=== PATIENT | female | born 1945 | race Caucasian/White ===

== ENCOUNTER 2017-11-20 08:28 | Emergency (ER) | payer MEDICARE, BC ==
[~2017-11-20] VITALS: Ht 165.1 cm; Wt 74.0 kg
[2017-11-20 08:32] VITALS: BP 138/65; PULSE 67; RESP 16; TEMP 98.2; O2SAT 94
[2017-11-20] MEDS ORDERED: GLUC15009 PO (08:42)
[2017-11-20] MEDS ORDERED: FOLI400T PO (08:42)
[2017-11-20] MEDS ORDERED: FISHCAP4 PO (08:42)
[2017-11-20] MEDS ORDERED: ASPI-516 CHEW (08:42)
[2017-11-20] MEDS ORDERED: ATOR10TA15 PO (08:42)
[2017-11-20] MEDS ORDERED: CELE20TA PO (08:42)
[2017-11-20] MEDS ORDERED: VERA80TA PO (08:42)
[2017-11-20] MEDS ORDERED: VITA250T3 PO (08:42)
[2017-11-20] MEDS ORDERED: METO25TA3 PO (08:42)
[2017-11-20] MEDS ORDERED: VITA200C3 PO (08:42)
[2017-11-20] MEDS ORDERED: CALCTAB19 PO (08:42)
[2017-11-20] MEDS ORDERED: MULTTAB67 PO (08:42)
[2017-11-20] MEDS ORDERED: BENZ100 PO (08:46)
[2017-11-20] MEDS ORDERED: CEPH-460 PO (08:46)
--- NOTE | 2017-11-20 08:47 | PD ---
HPI Chief Complaint: Cold / Flu Symptoms Time Seen by Provider: 08:43 Travel History International Travel<30 days: No Contact w/Intl Traveler<30days: No Traveled to known affect area: No History of Present Illness HPI Patient presents with complaints of productive cough for 2-3 days. States cough kept her up last night. Denies nausea vomiting diarrhea or fever. States she is prone to pneumonia. States she is taking Keflex in the past. No tobacco history. No history of lung disease. No sick contacts. No new rashes. PFSH Past Medical History High Cholesterol: Yes Diminished Hearing: No Influenza Vaccination: Yes ?: Not Past Surgical History Hysterectomy: Yes Social History Alcohol Use: Yes Tobacco Use: No Allergies-Medications (Allergen,Severity, Reaction): Coded Allergies: Penicillins (Verified Allergy, Unknown, 11/20/17) ciprofloxacin (Verified Allergy, Unknown, 11/20/17) codeine (Verified Allergy, Unknown, 11/20/17) morphine (Verified Allergy, Unknown, 11/20/17) Reported Meds & Prescriptions Reported Meds & Active Scripts Active Reported Celexa (Citalopram Hydrobromide) 20 Mg Tab 20 Mg PO DAILY Atorvastatin (Atorvastatin Calcium) 10 Mg Tab 10 Mg PO HS Metoprolol Tartrate 25 Mg Tab 25 Mg PO BID Verapamil (Verapamil HCl) 80 Mg Tab 180 Mg PO HS Fish Oil + D3 (Fish Oil-Cholecalciferol) 1,200-1,000 Mg-Unit Cap 1 Cap PO DAILY Calcium 600+D 200 (Calcium Carbonate-Vitamin D) 600-200 Mg-Unit Tab 1 Tab PO BID Glucosamine 1,500 Mg Tab 1,500 Mg PO BID Aspirin 81 Mg Chew 81 Mg CHEW HS Folic Acid 0.4 Mg Tab 400 Mcg PO DAILY Vitamin E 200 Unit Cap 400 Units PO DAILY Vitamin C (Ascorbic Acid) 250 Mg Tab 500 Mg PO DAILY Multiple Vitamin 1 Tab 1 Tab PO DAILY Review of Systems General / Constitutional: No: Fever Eyes: No: Visual changes HENT: No: Headaches Cardiovascular: No: Chest Pain or Discomfort Respiratory: Positive: Cough, No: Shortness of Breath Gastrointestinal: No: Abdominal Pain Genitourinary: No: Dysuria Musculoskeletal: No: Pain Skin: No Rash Neurologic: No: Weakness Psychiatric: No: Depression Endocrine: No: Polydipsia Hematologic/Lymphatic: No: Easy Bruising Physical Exam Narrative GENERAL: Well-nourished, well-developed patient. SKIN: Focused skin assessment warm/dry. HEAD: Normocephalic. EYES: No scleral icterus. No injection or drainage. NECK: Supple, trachea midline. No JVD or lymphadenopathy. CARDIOVASCULAR: Regular rate and rhythm without murmurs, gallops, or rubs. RESPIRATORY: Breath sounds equal bilaterally. No accessory muscle use. Mildly coarse bilateral bases GASTROINTESTINAL: Abdomen soft, non-tender, nondistended. MUSCULOSKELETAL: No cyanosis, or edema. BACK: Nontender without obvious deformity. No CVA tenderness. Data Data Last Documented VS Vital Signs Date Time Temp Pulse Resp B/P (MAP) Pulse Ox O2 Delivery O2 Flow Rate FiO2 11/20/17 08:32 98.2 67 16 138/65 (89) 94 MDM Medical Decision Making Medical Screen Exam Complete: Yes Emergency Medical Condition: Yes Differential Diagnosis Cough, pneumonia, bronchitis, allergies Narrative Course Assessment and plan discussed with patient at bedside. Diagnosis Primary Impression: Cough Patient Instructions: General Instructions Additional Instructions: Rest fluids and Motrin, encouraged frequent handwashing, consider vitamin C and zinc to boost the immune system. Return to emerge from with any onset of new symptoms. Follow-up with PCP. Med/Other Pt SpecificInfo: Prescription(s) given Scripts Benzonatate (Tessalon Perles) 100 Mg Cap 200 MG PO TID Y for COUGH, #20 CAP 0 Refills Prov: Gonzales Castellanos MD 11/20/17 Cephalexin (Keflex) 500 Mg Cap 500 MG PO Q12H for Infection for 10 Days, #20 CAP 0 Refills Prov: Gonzales Castellanos MD 11/20/17 Disposition: 01 DISCHARGE HOME Condition: Good Gonzales Castellanos MD Nov 20, 2017 08:47
== END 2017-11-20 09:05 | disposition home or self-care (01) ==
LOC: PHED 08:28
DX: R05 Cough (principal); Z88.0 Allergy status to penicillin; Z88.5 Allergy status to narcotic agent
CPT/HCPCS: 99283